=== PATIENT | female | born 1935 | race Caucasian/White ===

== ENCOUNTER → 2017-01-02 | Outpatient (CLI) | payer MEDICARE ==
--- NOTE | 2017-01-02 12:53 | US ---
EXAMINATION TYPE: US thyroid st tissue head/neck DATE OF EXAM: 01/02/2017 11:19 AM COMPARISON: NONE CLINICAL HISTORY: 81-year-old female E04.9 Nontoxic goiter, unspecified. Patients states doctor felt one side was enlarged compared to the other. TECHNIQUE: Multiple sonographic images of the thyroid gland are obtained. FINDINGS: GLAND SIZE: Right Lobe: 5.0 x 1.6 x 1.8 cm Overall Parenchyma: homogenous Left Lobe: 2.6 x 1.1 x 1.3 cm Overall Parenchyma: homogeneous Isthmus Thickness: 0.3 cm NODULES RIGHT: # of nodules measured on right: 2 1. 0.7 X 0.5 x 0.4 cm cystic nodule at the lower pole with well-defined margins. This nodule is ta ller than wide and shows no intranodular vascularity. Prominent echogenic ring seen surrounding lesio n which increases nodule size to 10 x 9 mm. Prior size: no prior 2. 0.5 X 0.4 x 0.4 cm cystic nodule at the lower pole with well-defined margins. This nodule is rola ler than wide and shows no intranodular vascularity. Prior size: no prior LEFT: # of nodules measured on left: 0 ISTHMUS: # of nodules measured in the isthmus: 0 Bilateral neck scanned, no evidence of lymphadenopathy. IMPRESSION: 1. The right lobe is borderline to mildly enlarged. 2. There are 2 cystic nodules in the right lobe, the larger has a thick wall and measures up to 1 cm. This can be followed.
== END ==
LOC: RADUSWWP 11:00
PROVIDERS: ATTEND Allergy & Immunology
DX: E04.2 Nontoxic multinodular goiter (principal)
CPT/HCPCS: 76536

== ENCOUNTER → 2017-01-13 | Outpatient (CLI) | payer MEDICARE | END | disposition home or self-care (01) | LOC: LABWHC1 11:14 | PROVIDERS: ATTEND Allergy & Immunology | DX: E04.1 Nontoxic single thyroid nodule (principal); E04.9 Nontoxic goiter, unspecified | CPT/HCPCS: 36415; 84436; 84439; 84443; 86376; 86800 ==

== ENCOUNTER → 2017-02-23 | Outpatient (CLI) | payer MEDICARE ==
--- NOTE | 2017-02-24 18:56 | NM ---
EXAMINATION TYPE: NM thyroid image w uptake DATE OF EXAM: 02/24/2017 COMPARISON: Thyroid ultrasound January 02, 2017 HISTORY: Right thyroid nodules (x 2) evaluation TECHNIQUE: After the intravenous administration of 10.2 mCi Tc 99m Sodium Pertechnetate, thyroid imag ing is performed 15 minutes post injection. Thyroid iodine uptake is calculated after the oral admini stration of 11 uCi I-131 capsule. FINDINGS: There is normal distribution of activity throughout the gland. The 4 hour iodine uptake is calculated at 7.0% (normal range 8-14%). The 24-hour iodine uptake is calculated at 25.2% (normal ra nge 15-35%). IMPRESSION: Normal thyroid scan and uptake.
== END | disposition home or self-care (01) ==
LOC: RADNMMAIN 11:04
PROVIDERS: ATTEND Family Medicine
DX: E04.1 Nontoxic single thyroid nodule (principal)
CPT/HCPCS: 78014; A9528; A9512

== ENCOUNTER → 2017-06-26 | Outpatient (CLI) | payer MEDICARE ==
--- NOTE | 2017-06-26 12:21 | US ---
EXAMINATION TYPE: US kidneys/renal and bladder DATE OF EXAM: 06/26/2017 COMPARISON: 05/27/2013 CLINICAL HISTORY: N18.4 Chronic kidney disease stage 4. EXAM MEASUREMENTS: Right Kidney: 9.2 x 3.6 x 3.8 cm Left Kidney: 7.5 x 3.8 x 3.6 cm Technical limitations due to large amount of overlying bowel content Right Kidney: Lesion area upper pole appears hypoechoic and likely represents a cyst = 0.8 x 0.7 x 0. 7cm although this is too small to accurately characterize. Left Kidney: small in size with cystic areas noted, largest = 1.8 x 1.4 x 1.5cm . Left renal cyst p reviously measured 1.8 x 1.3 x 1.6 cm on the exam of 05/27/2013. Bladder: possible septation noted Bilateral Jets seen: no IMPRESSION: 1. Stable left renal cyst in comparison to the exam of 05/27/2013 that should be considered benign. 2. Right renal atrophy and probable right renal cyst measuring 8 mm.
== END | disposition home or self-care (01) ==
LOC: RADUSWWP 11:09
PROVIDERS: ATTEND Internal Medicine Nephrology
DX: N28.1 Cyst of kidney, acquired (principal); N26.1 Atrophy of kidney (terminal); N18.4 Chronic kidney disease, stage 4 (severe)
CPT/HCPCS: 76770

== ENCOUNTER → 2017-10-20 | Outpatient (CLI) | payer MEDICARE ==
--- NOTE | 2017-10-20 10:43 | US ---
EXAMINATION TYPE: US kidneys/renal and bladder DATE OF EXAM: 10/20/2017 COMPARISON: US 06/26/2017 CLINICAL HISTORY: N18.4 CKD STAGE 4. EXAM MEASUREMENTS: Right Kidney: 9.1 x 3.5 x 3.7 cm Left Kidney: 8.3 x 4.4 x 4.1 cm limited vis of lower pole left kidney due to bowel gas. Right Kidney: small cyst upper measures 0.7 x 0.7 x 0.7 cm Left Kidney: cyst mid/lower measures 2.1 x 1.7 x 1.6 cm Bladder: wnl Bilateral Jets seen: Yes There is no evidence for hydronephrosis at this point in time. No nephrolithiasis is seen. No solid masses are identified. The urinary bladder is anechoic. Bilateral ureteral jets are seen. IMPRESSION: Simple appearing renal cysts. Atrophic changes noted.
== END | disposition home or self-care (01) ==
LOC: RADUSWWP 10:02
PROVIDERS: ATTEND Internal Medicine Nephrology
DX: N28.1 Cyst of kidney, acquired (principal); N18.4 Chronic kidney disease, stage 4 (severe); N26.1 Atrophy of kidney (terminal)
CPT/HCPCS: 76770

== ENCOUNTER → 2020-01-18 | Outpatient (CLI) | payer MEDICARE ==
[2020-01-18 09:08] LABS: Basophils % (A) 1 %; Eosinophils # (A) 0.4 k/uL (0-0.7); Eosinophils % (A) 9 %; HCT 41.9 % (34.0-46.0); HGB 13.4 gm/dL (11.4-16.0); Lymphocytes # (A) 1.1 k/uL (1.0-4.8); Lymphocytes % (A) 23 %; MCH 31.7 pg (25.0-35.0); MCV 98.9 fL (80.0-100.0); Mean Platelet Volume 7.1; Monocytes # (A) 0.3 k/uL (0-1.0); Monocytes % (A) 5 %; Neutrophils # (A) 2.9 k/uL (1.3-7.7); Neutrophils % (A) 60 %; Platelet Count 191 k/uL (150-450); RBC 4.24 m/uL (3.80-5.40); WBC 4.9 k/uL (3.8-10.6)
[2020-01-18 09:20] LABS: Appearance,Urine Clear (Clear); Bilirubin,Urine Negative (Negative); Blood,Urine Negative (Negative); Color,Urine Light Yellow; Glucose,Urine (UA) Negative (Negative); Ketones,Urine Negative (Negative); Leukocyte Esterase,Urine Negative (Negative); Nitrite,Urine Negative (Negative); PH, Urine 6.5 (5.0-8.0); Protein,Urine Negative (Negative); Specific Gravity,Urine 1.009 (1.001-1.035); Urobilinogen,Urine <2.0 mg/dL (<2.0)
[2020-01-18 10:06] LABS: Protein/Creatinine Ratio,Urine 0.231
[2020-01-18 15:44] LABS: % Iron Saturation 32.27 (12.00-45.00); Magnesium 2.2 mg/dL (1.5-2.4)
[2020-01-18 15:45] LABS: African American GFR (CKD) 36.7 (60.0-200.0); Anion Gap 11.4 mmol/L (4.00-12.00); BUN/Creat Ratio 18.67 Ratio (12.00-20.00); Calcium 9.1 mg/dL (8.7-10.3); Carbon Dioxide 26.6 mmol/L (21.6-31.8); Non-African American GFR(CKD) 31.7 (60.0-200.0); Potassium 4.7 mmol/L (3.5-5.5); Uric Acid 5.7 mg/dL (2.9-7.7)
[2020-01-18 15:54] LABS: Ferritin 49.2 ng/mL (10.0-291.0)
== END | disposition home or self-care (01) ==
LOC: LABWHC1 08:23
PROVIDERS: ATTEND Nurse Practitioner Family
DX: N18.4 Chronic kidney disease, stage 4 (severe) (principal)
CPT/HCPCS: 36415; 80048; 81003; 82040; 82306; 82570; 82728; 83540; 83550; 83735; 83970; 84100; 84156; 84550; 85025

== ENCOUNTER 2020-03-04 09:45 | Emergency (ER) | payer MEDICARE ==
[2020-03-04 09:56] VITALS: RESP 18; TEMP 98.2
--- NOTE | 2020-03-04 10:37 | ED ---
General Adult HPI - General Source: patient Mode of arrival: wheelchair Limitations: physical limitation <Lacy Varela - Last Filed: 03/04/20 11:28> <Lawrence Maciel - Last Filed: 03/04/20 11:42> - General Chief complaint: Fall Stated complaint: Fall,Lt hip pain and poison agnes Time Seen by Provider: 03/04/20 10:04 - History of Present Illness Initial comments: Patient is a 84-year-old female, history hypertension, presenting to the emergency department for chest at 2 separate complaints. Patient states yes terday she noticed a rash on her right arm and on her right side that she thinks is from poison agnes in regard. Patient states she always react strongly to this. She states it is very itchy. She denies any shortness of breath, wheezing, chest pain. Patient's second complaint is left hip pain. Patient states 2 weeks ago she got her foot tangled in her bedding and fell landing mostly on her left hip. Patient states she was able to walk on the hip but the pain is still there and she is worried she injured it. She denies any surgeries of her hip. She has had bilateral knee replacements. She denies being on blood thinners. She has no further complaints at this time. Upon arrival to the ER, her vitals are stable. (Lacy Varela) - Related Data Previous Rx's Medication Instructions Recorded Hydrocortisone Cream 1 applic TOPICAL BID 5 Days #1 tube 03/04/20 [Hydrocortisone 2.5% Cream] Allergies Allergy/AdvReac Type Severity Reaction Status Date / Time acetaminophen Allergy Rash/Hives Verified 03/04/20 10:01 [From Tylenol-Codeine #3] cephalexin [From Keflex] Allergy Rash/Hives Verified 03/04/20 10:01 codeine Allergy Rash/Hives Verified 03/04/20 10:01 [From Tylenol-Codeine #3] egg Allergy Rash/Hives Verified 03/04/20 10:01 nitrofurantoin Allergy Rash/Hives Verified 03/04/20 10:01 [From Macrobid] peanut Allergy Rash/Hives Verified 03/04/20 10:01 prednisone Allergy Rash/Hives Verified 03/04/20 10:01 Sulfa (Sulfonamide Allergy Rash/Hives Verified 03/04/20 10:01 Antibiotics) tramadol Allergy Rash/Hives Verified 03/04/20 10:01 wheat Allergy Rash/Hives Verified 03/04/20 10:01 nickel AdvReac knee would Verified 03/04/20 10:01 not heal timethopine Allergy Rash/Hives Uncoded 03/04/20 10:01 Review of Systems ROS Other: All systems not noted in ROS Statement are negative. <NicholeLacy Britany - Last Filed: 03/04/20 11:28> ROS Other: All systems not noted in ROS Statement are negative. <Lawrence Maciel - Last Filed: 03/04/20 11:42> ROS Statement: Those systems with pertinent positive or pertinent negative responses have been documented in the HPI. Past Medical History Past Medical History: GERD/Reflux, Hyperlipidemia, Hypertension Additional Past Medical History / Comment(s): renal failure, cataracts History of Any Multi-Drug Resistant Organisms: None Reported Past Surgical History: Appendectomy, Hysterectomy, Joint Replacement Additional Past Surgical History / Comment(s): cataract Past Psychological History: No Psychological Hx Reported Smoking Status: Never smoker Past Alcohol Use History: None Reported Past Drug Use History: None Reported <NicholeLacy L - Last Filed: 03/04/20 11:28> General Exam Limitations: physical limitation <Lacy Varela Britany - Last Filed: 03/04/20 11:28> - General Exam Comments Initial Comments: GENERAL: Well-appearing, well-nourished and in no acute distress. HEAD: Atraumatic, normocephalic. EYES: Pupils equal round and reactive to light, extraocular movements intact, sclera anicteric, conjunctiva are normal. ENT: TMs normal, nares patent, oropharynx clear without exudates. Moist mucous membranes. NECK: Normal range of motion, supple without lymphadenopathy or JVD. LUNGS: Breath sounds clear to auscultation bilaterally and equal. No wheezes rales or rhonchi. HEART: Regular rate and rhythm without murmurs, rubs or gallops. ABDOMEN: Soft, nontender, normoactive bowel sounds. No guarding, no rebound. No masses appreciated. : Deferred EXTREMITIES: Patient has full range of motion of bilateral hips, pain with palpation of the lateral aspect of the left hip. She is neurovascular intact. No pitting or edema. No clubbing or cyanosis. NEUROLOGICAL: Cranial nerves II through XII grossly intact. Normal speech, normal gait. PSYCH: Normal mood, normal affect. SKIN: Warm, Dry, normal turgor,. Patient has a very minor macular papular rash on her right forearm as well as the right side of her hip. This appears to be a dermatitis (Lacy Varela) Course <Lawrence Maciel - Last Filed: 03/04/20 11:42> Vital Signs 03/04/20 03/04/20 09:53 11:37 Temperature 98.2 F 98.2 F Pulse Rate 77 67 Respiratory 18 18 Rate Blood Pressure 162/81 150/82 O2 Sat by Pulse 99 97 Oximetry - Reevaluation(s) Reevaluation #1: 03/04/20 11:41 PA supervision: I proceeded a [id number] evaluation the patient. Patient does have evidence of contact dermatitis lower extremities. She also had a CAT scan done as a evaluation for possible subcapital hip fracture which was negative. I do agree with the assessment last. The patient is in agreement. (Lawrence Maciel) Medical Decision Making <Lacy Varela - Last Filed: 03/04/20 11:28> - Medical Decision Making Patient is an 84-year-old female here for a contact dermatitis from most likely poison agnes on her right forearm and right side as well as left hip pain after a fall 2 weeks ago. I will prescribe patient hydrocortisone cream for her poison agnes on her arm. X-rays of the left hip were inconclusive, concern for a subcapital fracture. I did order a computed tomography scan of her left hip which reveals no signs of a fracture. I discussed with patient her symptoms most likely contusion to her lateral left hip. She can continue with heat to the area, gentle stretching. She may take ibuprofen for discomfort. If her symptoms persist, follow up with PCP. She is in agreement with this plan of care. She is stable for discharge. Return parameters were discussed with the patient she verbalized understanding. Case discussed with Dr. Maciel. (Lacy Varela) Disposition Is patient prescribed a controlled substance at d/c from ED?: No <Lacy Varela - Last Filed: 03/04/20 11:28> <Lawrence Maciel - Last Filed: 03/04/20 11:42> Clinical Impression: Contact dermatitis, Left hip pain Disposition: HOME SELF-CARE Condition: Stable Instructions (If sedation given, give patient instructions): Contact Dermatitis (ED) Additional Instructions: Please return to the Emergency Department if symptoms worsen or any other concerns. Use topical steroid cream as prescribed. Continue with heat to the left hip as well as gentle stretching. Follow up with PCP if symptoms persist. Prescriptions: Hydrocortisone Cream [Hydrocortisone 2.5% Cream] 1 applic TOPICAL BID 5 Days #1 tube Referrals: Lei Noriega MD [Primary Care Provider] - 1-2 days
--- NOTE | 2020-03-04 10:47 | XR ---
EXAMINATION TYPE: XR Hip Complete LT , 2 VIEWS DATE OF EXAM ORDERED: 03/04/2020 HISTORY: fall 2wks ago, pain. COMPARISON: None. FINDINGS: There is moderately severe degenerative change within the left hip. There is slight cortic al irregularity in the subcapital region. I could not with certainty exclude a subcapital fracture. IMPRESSION: 1 SUSPICIOUS THAT THERE IS A SUBCAPITAL FRACTURE OF THE LEFT HIP. A CT SCAN OF THE LEFT HIP WOULD BE SUGGESTED.
--- NOTE | 2020-03-04 11:20 | CT ---
EXAMINATION TYPE: CT hip LT wo con DATE OF EXAM: 03/04/2020 COMPARISON: Plain films from earlier today. HISTORY: left hip pain post fall [address] DLP: 526.8 mGycm Automated exposure control for dose reduction was used. FINDINGS: Soft tissues are unremarkable. There is severe degenerative change present within the left hip. No fracture is identified. IMPRESSION: 1. NO EVIDENCE OF A SUBCAPITAL FRACTURE. 2. SEVERE DEGENERATIVE CHANGE.
[2020-03-04 11:38] VITALS: BP 150/82; PULSE 67
== END 2020-03-04 11:38 | disposition home or self-care (01) ==
LOC: EC 09:45
DX: L25.9 Unspecified contact dermatitis, unspecified cause (principal); M25.552 Pain in left hip; Z88.1 Allergy status to other antibiotic agents; Z88.2 Allergy status to sulfonamides; Z88.5 Allergy status to narcotic agent; Z88.6 Allergy status to analgesic agent; Z88.8 Allergy status to other drugs, medicaments and biological substances; Z91.012 Allergy to eggs; Z91.010 Allergy to peanuts; Z91.018 Allergy to other foods; Z96.653 Presence of artificial knee joint, bilateral; W01.0XXA Fall on same level from slipping, tripping and stumbling without subsequent striking against object, initial encounter
CPT/HCPCS: 73502; 99284

== ENCOUNTER → 2020-05-24 | Outpatient (CLI) | payer MEDICARE ==
[2020-05-24 11:43] LABS: Basophils % (A) 1 %; Eosinophils # (A) 0.1 k/uL (0-0.7); Eosinophils % (A) 3 %; HCT 41.5 % (34.0-46.0); HGB 13.1 gm/dL (11.4-16.0); Lymphocytes # (A) 0.9 k/uL (1.0-4.8); Lymphocytes % (A) 21 %; MCHC 31.5 g/dL (31.0-37.0); MCV 98.4 fL (80.0-100.0); Monocytes # (A) 0.3 k/uL (0-1.0); Monocytes % (A) 7 %; Neutrophils % (A) 66 %; Platelet Count 164 k/uL (150-450); RBC 4.22 m/uL (3.80-5.40); RDW 13.3 % (11.5-15.5); WBC 4.5 k/uL (3.8-10.6)
[2020-05-24 12:56] LABS: Appearance,Urine Clear (Clear); Bilirubin,Urine Negative (Negative); Blood,Urine Negative (Negative); Color,Urine Yellow; Glucose,Urine (UA) Negative (Negative); Ketones,Urine Negative (Negative); Leukocyte Esterase,Urine Negative (Negative); Nitrite,Urine Negative (Negative); PH, Urine 6.5 (5.0-8.0); Protein,Urine Negative (Negative); Specific Gravity,Urine 1.011 (1.001-1.035); Urobilinogen,Urine <2.0 mg/dL (<2.0)
[2020-05-24 13:00] LABS: Protein/Creatinine Ratio,Urine 0.216
[2020-05-24 18:42] LABS: African American GFR (CKD) 31.3 (60.0-200.0); Anion Gap 6.3 mmol/L (4.00-12.00); BUN/Creat Ratio 15.88 Ratio (12.00-20.00); Calcium 9.3 mg/dL (8.7-10.3); Carbon Dioxide 29.7 mmol/L (21.6-31.8); Phosphorus 3.5 mg/dL (2.4-5.1); Potassium 4.8 mmol/L (3.5-5.5); Total Bilirubin 0.8 mg/dL (0.2-1.2)
== END | disposition home or self-care (01) ==
LOC: LABWHC1 10:47
PROVIDERS: ATTEND Internal Medicine Nephrology
DX: N18.4 Chronic kidney disease, stage 4 (severe) (principal)
CPT/HCPCS: 36415; 80053; 81003; 82306; 82570; 83970; 84100; 84156; 85025

== ENCOUNTER → 2020-10-16 | Outpatient (CLI) | payer MEDICARE ==
[2020-10-16 12:17] LABS: Appearance,Urine Clear (Clear); Bilirubin,Urine Negative (Negative); Blood,Urine Negative (Negative); Color,Urine Yellow; Glucose,Urine (UA) Negative (Negative); Ketones,Urine Negative (Negative); Leukocyte Esterase,Urine Negative (Negative); Nitrite,Urine Negative (Negative); Protein,Urine Negative (Negative); Specific Gravity,Urine 1.011 (1.001-1.035); Urobilinogen,Urine <2.0 mg/dL (<2.0)
[2020-10-16 12:33] LABS: Creatinine,Urine Random 86.6 mg/dL; Protein/Creatinine Ratio,Urine 0.173
[2020-10-16 19:36] LABS: Basophils # (A) 0.03 X 10*3/uL (0.00-0.10); Basophils % (A) 0.5 %; Eosinophils % (A) 3.6 %; HCT 41.5 % (37.2-46.3); HGB 13.4 g/dL (12.0-15.0); Lymphocytes # (A) 1.39 X 10*3/uL (0.90-5.00); MCH 31.9 pg (27.0-32.0); MCHC 32.3 g/dL (32.0-37.0); MCV 98.8 fL (80.0-97.0); Mean Platelet Volume 10.9 fL (9.5-12.2); Monocytes # (A) 0.52 X 10*3/uL (0.20-1.00); Monocytes % (A) 9.3 %; Neutrophils # (A) 3.42 X 10*3/uL (1.80-7.70); Neutrophils % (A) 61.4 %; Platelet Count 185 X 10*3/uL (140-440); RDW 12.9 % (11.5-14.5); WBC 5.57 X 10*3/uL (4.50-10.00)
[2020-10-16 20:25] LABS: African American GFR (CKD) 25.7 (60.0-200.0); Albumin 4.3 g/dL (3.80-4.90); Albumin/Globulin Ratio 2.39 (1.60-3.17); Anion Gap 11.6 mmol/L (4.00-12.00); Calcium 9.2 mg/dL (8.7-10.3); Carbon Dioxide 27.4 mmol/L (21.6-31.8); Globulin 1.8 g/dL (1.6-3.3); Non-African American GFR(CKD) 22.2 (60.0-200.0); Potassium 4.5 mmol/L (3.5-5.5); Total Bilirubin 0.6 mg/dL (0.2-1.2); Total Protein 6.1 g/dL (6.2-8.2)
== END | disposition home or self-care (01) ==
LOC: LABWHC1 11:26
PROVIDERS: ATTEND Nurse Practitioner Family
DX: E55.9 Vitamin D deficiency, unspecified (principal); N18.4 Chronic kidney disease, stage 4 (severe); D63.1 Anemia in chronic kidney disease; N25.81 Secondary hyperparathyroidism of renal origin; N39.0 Urinary tract infection, site not specified; R80.9 Proteinuria, unspecified
CPT/HCPCS: 36415; 80053; 81003; 82306; 82570; 83970; 84100; 84156; 85025

== ENCOUNTER → 2021-03-28 | Outpatient (CLI) | payer MEDICARE ==
[2021-03-28 12:48] LABS: Appearance,Urine Clear (Clear); Bilirubin,Urine Negative (Negative); Blood,Urine Negative (Negative); Color,Urine Yellow; Glucose,Urine (UA) Negative (Negative); Ketones,Urine Negative (Negative); Leukocyte Esterase,Urine Negative (Negative); Nitrite,Urine Negative (Negative); PH, Urine 6.5 (5.0-8.0); Protein,Urine Negative (Negative); Urobilinogen,Urine <2.0 mg/dL (<2.0)
[2021-03-28 13:01] LABS: Creatinine,Urine Random 75.2 mg/dL; Protein/Creatinine Ratio,Urine 0.186
[2021-03-28 15:36] LABS: Basophils # (A) 0.02 X 10*3/uL (0.00-0.10); Basophils % (A) 0.5 %; Eosinophils # (A) 0.12 X 10*3/uL (0.04-0.35); Eosinophils % (A) 2.7 %; HGB 13.6 g/dL (12.0-15.0); Lymphocytes # (A) 1.11 X 10*3/uL (0.90-5.00); Lymphocytes % (A) 25.3 %; MCH 32.9 pg (27.0-32.0); MCHC 33.2 g/dL (32.0-37.0); MCV 99.3 fL (80.0-97.0); Mean Platelet Volume 10.7 fL (9.5-12.2); Monocytes # (A) 0.28 X 10*3/uL (0.20-1.00); Monocytes % (A) 6.4 %; Neutrophils # (A) 2.85 X 10*3/uL (1.80-7.70); Neutrophils % (A) 64.9 %; Platelet Count 171 X 10*3/uL (140-440); RBC 4.13 X 10*6/uL (4.10-5.20); RDW 12.9 % (11.5-14.5); WBC 4.39 X 10*3/uL (4.50-10.00)
[2021-03-28 20:37] LABS: % Iron Saturation 32.28 (12.00-45.00); African American GFR (CKD) 25.7 (60.0-200.0); Albumin 4.3 g/dL (3.80-4.90); Albumin/Globulin Ratio 1.87 (1.60-3.17); Anion Gap 10.6 mmol/L (4.00-12.00); Calcium 9.1 mg/dL (8.7-10.3); Carbon Dioxide 25.4 mmol/L (21.6-31.8); Globulin 2.3 g/dL (1.6-3.3); Magnesium 2.1 mg/dL (1.5-2.4); Non-African American GFR(CKD) 22.2 (60.0-200.0); Potassium 4.6 mmol/L (3.5-5.5); Total Bilirubin 0.8 mg/dL (0.3-1.2); Total Protein 6.6 g/dL (6.2-8.2); Uric Acid 6.5 mg/dL (2.9-7.7)
[2021-03-28 20:46] LABS: Ferritin 46.7 ng/mL (10.0-291.0)
== END | disposition home or self-care (01) ==
LOC: LABWHC1 10:07
PROVIDERS: ATTEND Nurse Practitioner Family
DX: N18.4 Chronic kidney disease, stage 4 (severe) (principal); D63.1 Anemia in chronic kidney disease; E21.3 Hyperparathyroidism, unspecified; N39.0 Urinary tract infection, site not specified; M10.9 Gout, unspecified; E55.9 Vitamin D deficiency, unspecified; R71.8 Other abnormality of red blood cells
CPT/HCPCS: 36415; 80053; 81003; 82306; 82570; 82728; 83540; 83550; 83735; 83970; 84100; 84156; 84550; 85025

== ENCOUNTER → 2021-08-12 | Outpatient (CLI) | payer MEDICARE ==
[2021-08-12 12:07] LABS: Appearance,Urine Clear (Clear); Bacteria,Urine Rare /hpf; Bilirubin,Urine Negative (Negative); Blood,Urine Negative (Negative); Color,Urine Yellow; Glucose,Urine (UA) Negative (Negative); Hyaline Casts,Urine 1 /lpf (0-2); Ketones,Urine Negative (Negative); Leukocyte Esterase,Urine Trace (Negative); Mucus,Urine Rare /hpf; Nitrite,Urine Negative (Negative); PH, Urine 5.5 (5.0-8.0); Protein,Urine Trace (Negative); RBC,Urine 1 /hpf (0-5); Specific Gravity,Urine 1.015 (1.001-1.035); Squamous Epithelial Cell,Urine 1 /hpf (0-4); Urobilinogen,Urine <2.0 mg/dL (<2.0); WBC,Urine 4 /hpf (0-5)
[2021-08-12 13:02] LABS: Creatinine,Urine Random 117.7 mg/dL; Protein/Creatinine Ratio,Urine 0.17
[2021-08-12 17:58] LABS: Basophils # (A) 0.05 X 10*3/uL (0.00-0.10); Basophils % (A) 0.9 %; Eosinophils # (A) 0.12 X 10*3/uL (0.04-0.35); Eosinophils % (A) 2.1 %; HCT 42.4 % (37.2-46.3); HGB 13.4 g/dL (12.0-15.0); Lymphocytes % (A) 24.7 %; MCH 31.2 pg (27.0-32.0); MCHC 31.6 g/dL (32.0-37.0); MCV 98.8 fL (80.0-97.0); Monocytes # (A) 0.41 X 10*3/uL (0.20-1.00); Monocytes % (A) 7.2 %; Neutrophils # (A) 3.66 X 10*3/uL (1.80-7.70); Neutrophils % (A) 64.7 %; Platelet Count 167 X 10*3/uL (140-440); RBC 4.29 X 10*6/uL (4.10-5.20); RDW 12.9 % (11.5-14.5); WBC 5.66 X 10*3/uL (4.50-10.00)
[2021-08-12 20:14] LABS: % Iron Saturation 37.87 (12.00-45.00); African American GFR (CKD) 25.6 (60.0-200.0); Albumin 4.3 g/dL (3.8-4.9); Anion Gap 13.7 mmol/L (10.00-18.00); BUN/Creat Ratio 14.35 Ratio (12.00-20.00); Blood Urea Nitrogen 28.7 mg/dL (9.0-27.0); Calcium 9.5 mg/dL (8.7-10.3); Carbon Dioxide 20.3 mmol/L (20.0-27.5); Ferritin 57.6 ng/mL (10.0-291.0); Magnesium 2.2 mg/dL (1.5-2.4); Phosphorus 3.7 mg/dL (2.4-5.1); Potassium 4.9 mmol/L (3.5-5.5); Uric Acid 5.6 mg/dL (2.9-7.7)
== END | disposition home or self-care (01) ==
LOC: LABWHC1 11:12
PROVIDERS: ATTEND Internal Medicine Nephrology
DX: E55.9 Vitamin D deficiency, unspecified (principal); N25.81 Secondary hyperparathyroidism of renal origin; N18.4 Chronic kidney disease, stage 4 (severe); M10.9 Gout, unspecified; N39.0 Urinary tract infection, site not specified; D64.9 Anemia, unspecified; R80.9 Proteinuria, unspecified
CPT/HCPCS: 36415; 80048; 81001; 82040; 82306; 82570; 82728; 83540; 83550; 83735; 83970; 84100; 84156; 84550; 85025

== ENCOUNTER 2024-01-01 09:17 | Day surgery (SDC) | payer MEDICARE ==
[2023-12-31 12:11] VITALS: BMI 24.2
[~2024-01-01 09:17] MED LIST: LACTATED RINGERS 1,000 ML IV SCH
[2024-01-01] MEDS: LACTATED RINGERS 1,000 ML IV ONE (09:56)
[2024-01-01 10:43] VITALS: TEMP 97.3
[2024-01-01] MEDS ORDERED: ETOMIDATE 2 MG/ML 10 ML VIAL ONE (10:59)
[2024-01-01] MEDS ORDERED: METOPROLOL TARTRATE 5 MG/5 ML VIAL IVP ONE (10:59)
[2024-01-01] MEDS ORDERED: KETAMINE HCL IN 0.9 % NACL 50 MG/5 ML SYRINGE ONE (10:59)
[2024-01-01] MEDS ORDERED: GLYCOPYRROLATE 0.2 MG/ML 2 ML VIAL ONE (10:59)
--- NOTE | 2024-01-01 11:26 | P.PCN ---
Date of Procedure: 01/01/24 Procedure(s) Performed: BRIEF HISTORY: Patient is a 88-year-old pleasant white female scheduled for an elective colonoscopy as a part of evaluation of blood in the stool. PROCEDURE PERFORMED: Colonoscopy with snare polypectomy. PREOPERATIVE DIAGNOSIS:blood in the stool IV sedation per Anesthesia. PROCEDURE: After informed consent was obtained, the patient, was brought into the endoscopy unit. IV sedation was administered by Anesthesia under continuous monitoring. Digital rectal examination was normal. Initially the Olympus CF-160 flexible video colonoscope was then inserted in the rectum, gradually advanced into the cecum without any difficulty. Careful examination was performed as the scope was gradually being withdrawn. Ileocecal valve and the appendiceal orifice were visualized and appeared normal. Prep was excellent. Mucosa of the cecum,had a 1 cm polyp removed by snare polypectomy. In the ascending colon there was a 5 limited 7 mm polyp removed by snare polypectomy(in the sigmoid: There was a 7 mm polyp removed by snare polypectomy. Moderate sigmoid diverticulosis seen. Rest of the ascending colon, transverse colon, descending colon, sigmoid colon, and rectum appeared normal. Retroflexion was performed in the rectum and no lesions were seen. The patient tolerated the procedure well. IMPRESSION: 1 cm cecal polyp status post polypectomy 5 mm and 7 mm ascending colon polyp status post polypectomy 7 mm sigmoid: Polyp status post-polypectomy Moderate sigmoid diverticulosis Small internal hemorrhoids RECOMMENDATIONS: Findings of this examination were discussed with the patient As well asa family. She was advised to follow with the biopsy results.
[2024-01-01 12:11] VITALS: BP 167/78; PULSE 61; RESP 18
== END 2024-01-01 12:07 | disposition home or self-care (01) ==
LOC: ORWHC2ENDO 09:17
PROVIDERS: ATTEND Internal Medicine Gastroenterology
DX: D12.0 Benign neoplasm of cecum (principal); D12.2 Benign neoplasm of ascending colon; D12.5 Benign neoplasm of sigmoid colon; K57.30 Diverticulosis of large intestine without perforation or abscess without bleeding; K64.8 Other hemorrhoids; K92.1 Melena; I10 Essential (primary) hypertension; E78.5 Hyperlipidemia, unspecified; N28.9 Disorder of kidney and ureter, unspecified; K21.9 Gastro-esophageal reflux disease without esophagitis; Z90.710 Acquired absence of both cervix and uterus; Z90.49 Acquired absence of other specified parts of digestive tract; Z98.890 Other specified postprocedural states; Z91.012 Allergy to eggs; Z79.899 Other long term (current) drug therapy
CPT/HCPCS: 45385; 88305